=== PATIENT | female | born 2000 | race Caucasian/White ===

== ENCOUNTER 2023-09-17 18:57 | Emergency (ER) | payer OTHER ==
[2023-09-17 19:09] VITALS: BP 108/58; PULSE 86; RESP 18; TEMP 97.6; BMI 19.7
[2023-09-17] MEDS ORDERED: DIPHTH,PERTUSS(ACELL),TET 0.5 ML DISP.SYRIN IM ONE (20:45)
[2023-09-17] MEDS: DIPHTH,PERTUSS(ACELL),TET 0.5 ML DISP.SYRIN IM ONE (20:50)
== END 2023-09-17 21:47 | disposition home or self-care (01) ==
LOC: JER 18:57
PROC: 3E0234Z Introduction of Serum, Toxoid and Vaccine into Muscle, Percutaneous Approach (ICD-10-PCS; principal; 2023-09-17)
DX: S61.302A Unspecified open wound of right middle finger with damage to nail, initial encounter (principal); R55 Syncope and collapse; W23.0XXA Caught, crushed, jammed, or pinched between moving objects, initial encounter
CPT/HCPCS: 73130-TC-RT-FY; 90715; 99284-25